=== PATIENT | male | born 1990 | race African-American/Black ===

== ENCOUNTER 2021-04-02 10:57 | Emergency (ER) | payer OTHER ==
[~2021-04-02] VITALS: Ht 172.7 cm; Wt 77.1 kg
[2021-04-02 11:04] VITALS: BP 127/79
--- NOTE | 2021-04-02 11:07 | NUR ---
AT BEDSIDE FOR EVAL.
--- NOTE | 2021-04-02 11:10 | NUR ---
URINE SPECIMEN COLLECTED AND SENT TO LAB.
[2021-04-02 11:16] LABS: BILIRUBIN,URINE Negative (NEGATIVE); COLOR,URINE YELLOW (YELLOW); LEUKOCYTE ESTERASE ,URINE Negative (NEGATIVE); NITRITE, URINE Negative (NEGATIVE); PROTEIN,URINE Negative (NEGATIVE); UGLUCOSE Negative (NEGATIVE); UROBILINOGEN,URINE 0.2 EU/dL (0.2)
--- NOTE | 2021-04-02 11:17 | NUR ---
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
[2021-04-02 11:33] LABS: BACTERIA,URINE Rare /HPF (None Seen); RBC,URINE NONE SEEN /HPF (0-2); SQUAMOUS EPITHELIAL CELL,UR Few /HPF (None Seen); WBC,URINE NONE SEEN /HPF (0-3)
[2021-04-02] MEDS ORDERED: LIDOCAINE /MPF 1% VIAL 5 ML VIAL ONE (12:00)
[2021-04-02] MEDS ORDERED: DOXYCYCLINE HYCLATE (100 MG) 100 MG TABLET ONE (12:00)
[2021-04-02] MEDS ORDERED: IBUPROFEN 600 MG TABLET PO ONE (12:00)
[2021-04-02] MEDS ORDERED: CEFTRIAXONE 500 MG VIAL ONE (12:00)
[2021-04-02] MEDS ORDERED: DOXYCYCLINE HYCLATE (100 MG) 100 MG TABLET PO ONE (12:00)
[2021-04-02] MEDS ORDERED: CEFTRIAXONE 1 G VIAL IM ONE (12:00)
[2021-04-02] MEDS ORDERED: IBUPROFEN 600 MG TABLET ONE (12:01)
[2021-04-02] MEDS ORDERED: IBUP-1955 PO (12:13)
[2021-04-02] MEDS ORDERED: DOXY100T2 PO (12:13)
--- NOTE | 2021-04-02 12:19 | NUR ---
Patient discharged to home in stable condition. Written and verbal after care instructions given. Patient verbalizes understanding of instruction.
== END 2021-04-02 12:20 | disposition home or self-care (01) ==
LOC: ER 11:02
DX: N45.1 Epididymitis (principal)
CPT/HCPCS: 76870; 81001; 87491; 87591; 96372; 99284; J0696; J3490